=== PATIENT | female | born 1965 | race Two or more races ===

== ENCOUNTER → 2025-04-14 | Outpatient (CLI) | payer OTHER, SELFPAY ==
[2025-04-14 11:41] LABS: Cardiac Risk Estimate 6.7 RATIO (3.7-5.6); Cholesterol 267 mg/dL (132-200); HDL Cholesterol 40 mg/dL (40-60); LDL Cholesterol,Calculated 190 mg/dL (0-130); Triglycerides 185 mg/dL (30-150)
== END | disposition home or self-care (01) ==
LOC: COPL 10:22
PROVIDERS: PCP Nurse Practitioner Family; Referring Provider Nurse Practitioner Family; Visit Provider Nurse Practitioner Family
DX: E78.2 Mixed hyperlipidemia (principal)
CPT/HCPCS: 36415; 80061

== ENCOUNTER 2025-05-29 11:41 | Emergency (ER) | payer OTHER, SELFPAY ==
[2025-05-29 11:42] VITALS: BMI 29.3
--- NOTE | 2025-05-29 11:45 | EKG_ITS ---
[facility] Test Date: 2025-05-29 Pat Name: BROOKE BLAKELY Department: Room: - Gender: Female [employer]oll [employer] Operator: : 1965 Requested By: ED Temporary Provider Order Number: [id number] Reading MD: ED Temporary Provider Measurements Intervals [place] Rate: 91 P: 50 FL: 146 QRS: -15 QRSD: 137 T: 14 QT: 399 QTc: 492 Interpretive Statements SINUS RHYTHM RIGHT BUNDLE BRANCH BLOCK [120+ ms QRS DURATION, UPRIGHT V1, 40+ ms S IN I/aVL/V4/V5/V6] No previous ECG available for comparison /store/S0/[id number].pdf
[2025-05-29 11:58] VITALS: BP 192/107; BP 206/117; PULSE 94; RESP 18; TEMP 37.3; O2SAT 97
--- NOTE | 2025-05-29 12:01 | XR_ITS ---
Examination: PA lateral chest 2 views TECHNIQUE: Upright PA lateral chest 2 views Date and time: May 29, 2025 1221 hours, comparison July 04, 2024 INDICATIONS: Lightheadedness beginning last night. FINDINGS: Normal heart size Lungs are clear. Mild thoracic spondylosis IMPRESSION: No active disease
--- NOTE | 2025-05-29 12:02 | PD.EDRME ---
Rapid Medical Screening Exam RME Arrival date/time: 05/29/25 11:41 59-year-old female with a history of hypertension presents to the emergency room with a chief complaint of 8 out of 10 right-sided sternal chest pain, lightheadedness, dizziness x 2 days I have greeted and performed a focused initial assessment of this patient. A comprehensive ED assessment and evaluation of the patient, analysis of all test results, and completion of the medical decision making process will be conducted by additional ED providers. Chief Complaint: Dizziness Vital signs: Vital Signs Temperature 99.1 F 05/29/25 11:58 Pulse Rate 94 05/29/25 11:58 Respiratory Rate 18 05/29/25 11:58 Blood Pressure 192/107 H 05/29/25 11:58 Pulse Oximetry (%) 97 05/29/25 11:58 Oxygen Delivery Method Room Air 05/29/25 11:58 Vital signs reviewed by provider: Yes
[2025-05-29 12:33] VITALS: BP 192/107; PULSE 94
[2025-05-29 13:06] LABS: Basophils # (Auto) 0.0 Thou/mm3 (0.0-0.2); Basophils % (Auto) 1 % (0-2.5); Eosinophils # (Auto) 0.0 Thou/mm3 (0.0-0.5); Eosinophils % (Auto) 0 % (0-10); Hematocrit 44.3 % (36.0-46.0); Hemoglobin 15.8 g/dL (12.0-16.0); Immature Granulocytes Auto 0.01 Thou/mm3 (0.00-0.00); Lymphocytes # (Auto) 1.2 Thou/mm3 (1.0-4.8); Lymphocytes % (Auto) 21 % (10-50); Mean Corpuscular HGB Conc 35.7 g/dl (31.0-37.0); Mean Corpuscular Hemoglobin 31.6 pg (25.0-35.0); Mean Corpuscular Volume 89 fL (80-100); Monocytes # (Auto) 0.3 Thou/mm3 (0.0-0.8); Monocytes % (Auto) 6 % (0-12); Neutrophils # (Auto) 4.0 Thou/mm3 (1.8-7.7); Neutrophils % (Auto) 73 % (37-80); Nucleated Red Blood Cell # 0.00 Thou/mm3 (0.00-0.00); Nucleated Red Blood Cell % 0 /100 WBC (0); Platelet Count 278 Thou/mm3 (140-440); RDW Standard Deviation 42.9 fL (36.4-46.3); Red Blood Count 5.00 Miln/mm3 (4.00-5.20); White Blood Count 5.6 Thou/mm3 (3.6-11.0)
[2025-05-29 13:22] LABS: INR 1.1 (0.9-1.3); Partial Thromboplastin Time 25.6 Seconds (22.0-36.0); Prothrombin Time 11.7 Seconds (9.0-12.2)
[2025-05-29 13:25] LABS: B-Type Natriuretic Peptide 32 pg/mL (0-100)
[2025-05-29 13:29] LABS: Alanine Aminotransferase 57 U/L (10-49); Albumin, Serum 4.7 gm/dL (3.4-4.8); Albumin/Globulin Ratio 1.6 (1.2-2.2); Alkaline Phosphatase 89 U/L (46-116); Anion Gap 13 (7-16); Aspartate Amino Transferase 53 U/L (0-34); BUN/Creatinine Ratio 9 Ratio (12-20); Bilirubin,Total 1.0 mg/dL (0.3-1.2); Blood Urea Nitrogen 7 mg/dL (9-23); Calcium 11.3 mg/dL (8.3-10.6); Calcium (Corrected) 11.3 mg/dL (8.5-10.1); Carbon Dioxide 22.5 mMol/L (20.0-31.0); Chloride 97 mMol/L (98-107); Creatinine (Component) 0.8 mg/dL (0.6-1.3); Estimated Creatinine Clearance 81.0 mL/min (>60); Globulin 3.0 gm/dL (2.3-3.5); Glucose 130 mg/dL (74-106); LDH (Lactate Dehydrogenase) 221 U/L (120-246); Magnesium 1.9 mg/dL (1.6-2.6); Osmolality,Calculated 264 (275-295); Potassium 3.9 mMol/L (3.4-5.1); Sodium 132 mMol/L (136-145); Total Protein 7.7 gm/dL (5.7-8.2); Troponin I < 0.020 ng/mL (0.0-0.045); eGFR > 60 See Note
[2025-05-29 15:39] VITALS: BP 131/83; PULSE 91; RESP 18; TEMP 37.1; O2SAT 97
[2025-05-29 15:53] LABS: Collection Type, Urine Clean Catch
[2025-05-29 16:13] LABS: Bacteria,Urine Rare; Bilirubin,Urine Negative (Negative); Blood,Urine Trace (Negative); Clarity,Urine Clear (Clear/Hazy); Color,Urine Colorless (Lt Yel-Yel); Culture Indicated,Urine Not Indicated; Glucose, Urine Negative (Negative); Ketones,Urine Negative (Negative); Leukocyte Esterase,Urine Negative (Negative); Nitrite,Urine Negative (Negative); PH,Urine 7.0 (5.0-7.0); Protein,Urine Negative (Neg - Trace); RBC,Urine 1 /hpf (0-3); Specific Gravity,Urine 1.005 (1.001-1.035); Squamous Epithelial Cell,Urine 1 /hpf (0-5); Urobilinogen,Urine Negative mg/dL (0.0-1.0); WBC,Urine < 1 /hpf (0-5)
[2025-05-29 16:45] LABS: Amphetamine/Methamp Scrn,U Negative (Negative); Barbiturate Screen,Urine Negative (Negative); Benzodiazepines Screen,Urine Negative (Negative); Benzoylecgonine Screen, Ur Negative (Negative); Fentanyl Screen,Urine Negative (Negative); Opiate Screen,Urine Negative (Negative); THC Screen,Urine Negative (Negative)
--- NOTE | 2025-05-29 17:01 | EDNOTE_ITS ---
ED Dizzyness RME/HPI General Chief Complaint: Dizziness Stated Complaint: LIGHTHEADED SINCE LAST NIGHT Arrival date/time: 05/29/25 11:41 RME / HPI RME / HPI Narrative: 05/29/25 11:41 59-year-old female with a history of hypertension presents to the emergency room with a chief complaint of 8 out of 10 right-sided sternal chest pain, lightheadedness, dizziness x 2 days I have greeted and performed a focused initial assessment of this patient. A comprehensive ED assessment and evaluation of the patient, analysis of all test results, and completion of the medical decision making process will be conducted by additional ED providers. DR. ELIZABETH MAIN ED EVALUATION 59 year old female with history of hypertension presents to the ED for multiple complaints. States last night she did not sleep well due to epigastric discomfort that did not improve after taking Tums. This morning after waking she felt light headed that was accompanied by a headache. States she checked her blood pressure and was elevated. Shortly after the right side of her face felt numb, prompting ED visit. Reportedly en route to ED she developed chest tightness, felt it was difficult to take a deep breath in, and began to feel anxious. No other associated symptoms reported. Denies fevers, chills, cough, shortness of breath, room-spinning dizziness, vomiting, diarrhea, urinary symptoms. Related Data Home Medications ?Medication ?Instructions ?Recorded ?Confirmed fexofenadine 60 mg tablet (Mirella PO PRN PRN ALLERGY ##0 10/18/13 Allergy) lisinopril 5 mg tablet PO QDAY High Blood Pressure ##0 10/18/13 Previous Rx's ?Medication ?Instructions ?Recorded ferrous sulfate 325 mg (65 mg 325 mg PO BID ##60 10/20 iron) tablet Allergies Allergy/AdvReac Type Severity Reaction Status Date / Time No Known Allergies Allergy Verified 05/29/25 11:44 Review of Systems Review of Systems Systems Reviewed: All systems reviewed, normal except as documented Past Medical History Past Medical History NEUROLOGIC: Negative Neurological Disorders CARDIAC: Positive Hypertension; Negative Cardiac Disorders GASTROINTESTINAL: Negative Gastrointestinal Disorders GENITOURINARY: Negative Genitourinary Disorders MUSCULOSKELETAL: Negative Musculoskeletal Disorders ENDOCRINE: Negative Endocrine Disorders Surgical History SURGICAL: Positive Hysterectomy (2013) and Section (); Negative Abdominal Surgery Social History SMOKING STATUS: Never smoker ED Exam Narrative Physical exam: GENERAL APPEARANCE: alert and oriented x 4, well-developed, well-nourished, no acute distress HEENT: Normocephalic, atraumatic; pupils equal, round, reactive to light; EOMI; mucous membranes pink, moist; oropharynx clear NECK: Supple LUNGS: CTABL; no wheezes, no rales, no rhonchi HEART: Regular rate, regular rhythm; normal S1, S2; no murmurs ABDOMEN: non distended; normal BS; soft, no tenderness, no guarding, no rebound; no masses, no organomegaly, no hernia BACK: no CVA tenderness EXTREMITIES: atraumatic; no edema NEUROLOGIC: awake; alert and oriented x4; cranial nerves II-XII grossly intact; no focal sensory or motor deficits PSYCHIATRIC: appropriate mood and affect SKIN: warm, dry, normal color; no rashes Course Quality Measures none Orders Category Date Time Status EKG (ED ONLY) *Do not use* NOW Care 05/29/25 11:45 Completed EKG (ED ONLY) *Do not use* NOW Care 05/29/25 17:57 Active EKG (ED Only) Stat Exams 05/29/25 11:45 Draft EKG (ED Only) Stat Exams 05/29/25 17:57 Ordered XR chest 2V Stat Exams 05/29/25 12:01 Completed B-Type Natriuretic Peptide Stat Lab 05/29/25 12:54 Completed CBC Stat Lab 05/29/25 12:54 Completed Comprehensive Metabolic Panel Stat Lab 05/29/25 12:54 Completed Drug Screen,Urine Stat Lab 05/29/25 15:50 Completed Free T4 (Free Thyroxine) Stat Lab 05/29/25 17:18 Received LDH (Lactate Dehydrogenase) Stat Lab 05/29/25 12:54 Completed Magnesium Stat Lab 05/29/25 12:54 Completed PTH [Parathyroid Hormone Intact] Stat Lab 05/29/25 17:18 Received Partial Thromboplastin Time Stat Lab 05/29/25 12:54 Completed Prothrombin Time with INR Stat Lab 05/29/25 12:54 Completed TSH [Thyroid Stimulating Hormone] Stat Lab 05/29/25 17:18 Received Troponin I Stat Lab 05/29/25 12:54 Completed Troponin I Stat Lab 05/29/25 17:18 Received Urinalysis, C/S if Indicated Stat Lab 05/29/25 15:50 Completed cloNIDine HCL [Catapres] Med 05/29/25 12:01 Discontinued 0.1 mg PO X1 ONE clonazePAM [KlonoPIN] Med 05/29/25 17:46 Discontinued 0.5 mg PO X1 ONE Vital Signs Vital signs: Vital Signs Temperature 99.1 F 05/29/25 11:58 Pulse Rate 94 05/29/25 11:58 Respiratory Rate 18 05/29/25 11:58 Blood Pressure 192/107 H 05/29/25 11:58 Pulse Oximetry (%) 97 05/29/25 11:58 Oxygen Delivery Method Room Air 05/29/25 11:58 Pulse ox is 97% on room air which is adequate. Dizziness MDM Narrative MDM Narrative:: Palmira Ventura am scribing for and in the presence of Dr. Elizabeth. Patient data External records reviewed:: [facility] previous records (I reviewed ED visit on 06/19/2024 for SVT ) Clinical information provided by:: patient Social determinants that could affect healthcare access:: none Patient has the following chronic illnesses:: HTN How is presenting disease/condition affected by chronic disease/condition?: exacerbated by Evaluation data The following diagnostics were reviewed and interpreted by me:: lab results, ra diology exam(s) and EKG tracing(s) (EKG @ 11:54 AM, sinus rhythm, rate 91, right bundle branch block that is new from EKG on 06/19/2024. ) Lab and/or radiology exams considered but not ordered:: None Interpretation Summary: Ordering Physician: Michael Jefferson Date of Service: 05/29/25 Procedure(s): XR chest 2V Accession Number(s): [id number] cc: Michael Jefferson; Jono Larson MD~ Examination: PA lateral chest 2 views TECHNIQUE: Upright PA lateral chest 2 views Date and time: May 29, 2025 1221 hours, comparison July 04, 2024 INDICATIONS: Lightheadedness beginning last night. FINDINGS: Normal heart size Lungs are clear. Mild thoracic spondylosis IMPRESSION: No active disease Dictated By: Jono Larson MD Signed By: <Electronically signed by Jono Larson MD in OV> 05/29/25 1234 Medications / Prescriptions Medications or Prescriptions considered but not ordered:: None Medication administrations:: Medication Administration History Discontinued Medications Clonazepam (Clonazepam 0.5 Mg Tablet) 0.5 mg PO X1 ONE Stop: 05/29/25 17:47 Clonidine (Clonidine Hcl 0.1 Mg Tablet) 0.1 mg PO X1 ONE Stop: 05/29/25 12:02 Last Admin: 05/29/25 12:33 Dose: 0.1 mg Documented By: See above Consultations Consultation(s) initiated? (list below): Yes Consultation #1 (Physician, Specialty, Details): I spoke with patients dice dealer Dr. Bonilla. Discussed HPI, ED course, exam findings, labs, and EKG results. States he will come evaluate the patient in the ED. Time: 17:08 Diagnosis Dizziness Differential Diagnosis: benign paroxysmal positional vertigo and other (hypertension, anxiety, chest pain ) Most likely diagnosis given after review of the tests above:: Hypertensive urgency New onset RBBB Hypercalcemia Admission Indicated Admission indicated?: not indicated Admission Request Was there a request for admission?: No Disposition Plan Disposition Plan: Discharge Discharge Attestation Discharge Attestation: The patient and all family members were given an opportunity to ask questions and understood the discharge instructions. Discharge instructions specifically effects, indications for sooner follow up or return to the emergency department, and the expected course of current diagnosis. Patient condition: Stable Discharge Plan Prescriptions/Referrals Prescriptions/Med Rec: No Action fexofenadine [Mirella Allergy] 60 MG tablet PO PRN PRN (Reason: ALLERGY) Qty: 0 lisinopril 5 MG tablet PO QDAY Qty: 0 ferrous sulfate 325 ( 65 )MG tablet 325 mg PO BID Qty: 60 1RF Referrals: NOLBERTO PIEDRA [Primary Care Provider] - In 1 week Problem List Clinical Impression: Hypertensive urgency, New onset right bundle branch block (RBBB), Hypercalcemia Patient/Caregiver Discharge Instructions Education Materials: Hypercalcemia Dc, Right Bundle Branch Block, ED High Blood Pressure ... Print Language: Brazilian
[2025-05-29 18:08] LABS: Free T4 (Free Thyroxine) 1.53 ng/dL (0.89-1.76); Thyroid Stimulating Hormone 1.91 uIU/mL (0.55-4.78); Troponin I < 0.020 ng/mL (0.0-0.045)
--- NOTE | 2025-05-29 18:21 | ESCONSULT_ITS ---
HPI Data of Consult Primary Care Provider: NOLBERTO PIEDRA Consult Narrative Reason for consult: Chest pressure History of present illness: HPI:A 59-year-old female patient with past medical history of hypertension, 1 episode of SVT in 2023, came to the ED due to chest pressure that started an hour before presentation. Patient reported that since last night she started to feel that she has postnasal drip that caused her to have upset stomach and she was nauseated. Over the night she started to develop right-sided headache, and she felt very anxious. She reported that she tried to sleep and to not think about her symptoms. She said that she slept however she was not refreshed and when she woke up she felt lightheaded and started to have bilateral numbness and she was somehow hyperventilating . She thought that she was having a stroke. After that she started to feel chest tightness that is when she decided to call her family and to go to the hospital. As soon as she arrived to the hospital her symptoms started to disappear slowly. Of note she had an episode of SVT in 2023 after she was working in the yard under high temperature and she took multiple energy drink that made her have severe palpitation and was diagnosed as having SVT. After that episode she went to follow-up with Dr. Combs, in which Holter monitor, echocardiogram, and nuclear stress test were performed and all of them they were within normal limits. Patient denied any fever, cough, palpitation, lower limb swelling, orthopnea or paroxysmal nocturnal dyspnea. Patient denied any vomiting, diarrhea, skin rash or. Urine tract symptoms. At the ED patient was found to have blood pressure of 192/107, pulse rate of 94, respiratory rate of 18, temperature of 99.1, O2 saturation of 97 on room air EKG was done and showed normal sinus rhythm with right bundle branch block, on review of previous EKG patient did not have a previous RBBB. Her CBC was within normal limits, CMP was significant for calcium level of 11.3, AST and ALT 53 and 57 respectively, BNP was normal, troponin was negative x 2, TSH was 1.91, free T41.53. Urinalysis was normal, and UTOX was negative. chest x-ray was negative for any active disease or fracture. At the ED patient was given clonazepam 0.5 mg p.o. x 1 and was given clonidine 0.1 mg p.o. x 1. Her blood pressure now 134/89 Home medications:Lisinopril PMH: As above PFX: Extensive cardiac history and her mother and her aunts Social hx: Alcohol: Socially Tobacco: Denied denied Illicit drugs: Allergies: No known allergies cc:: cc: Review of Systems Review of Systems Systems Reviewed: All systems reviewed, normal except as documented Exam Vital Signs Temp Pulse Resp BP Pulse Ox O2 Del Method 98.8 F 91 18 131/83 H 97 Room Air 05/29/25 15:39 05/29/25 15:39 05/29/25 15:39 05/29/25 15:39 05/29/25 15:39 05/29/25 15:39 Narrative Exam GEN: AOx3, able to speak full sentences HEENT: NC/AC, PERRLA, oral mucosa moist, neck supple CVS: RRR, S1-S2 present, no murmurs appreciated RESP: CTAB GI: soft,non distended, non tender, NBS MSK: able to move all 4 limbs, no lower extremity edema SKIN: warm and dry MEDICAL CLAIMS MANAGER: CN II-XII and Sensation grossly intact. Results Labs 05/29/25 12:54 05/29/25 12:54 Labs: Short CBC 05/29/25 Range/Units 12:54 WBC 5.6 (3.6-11.0) Thou/mm3 Hgb 15.8 (12.0-16.0) g/dL Hct 44.3 (36.0-46.0) % Plt Count 278 (140-440) Thou/mm3 BMP 05/29/25 12:54 Sodium 132 L Potassium 3.9 Chloride 97 L Carbon Dioxide 22.5 BUN 7 L Creatinine 0.8 Glucose 130 H Calcium 11.3 H Cardiac Enzymes 05/29/25 05/29/25 Range/Units 12:54 17:18 Troponin I < 0.020 < 0.020 (0.0-0.045) ng/mL Liver Function 05/29/25 Range/Units 12:54 Total Bilirubin 1.0 (0.3-1.2) mg/dL AST 53 H (0-34) U/L ALT 57 H (10-49) U/L Alkaline Phosphatase 89 (46-116) U/L Albumin 4.7 (3.4-4.8) gm/dL Urine 05/29/25 Range/Units 15:50 Urine Color Colorless A (Lt Yel-Yel) Urine Clarity Clear (Clear/Hazy) Urine pH 7.0 (5.0-7.0) Ur Specific [place] 1.005 (1.001-1.035) Urine Protein Negative (Neg - Trace) Urine Glucose (UA) Negative (Negative) Quality Measures Quality Measures none Medications Home Medications and Allergies Home Medications ?Medication ?Instructions ?Recorded ?Confirmed ?Type fexofenadine 60 mg tablet (Mirella PO PRN PRN ALLERGY ##0 10/18/13 History Allergy) lisinopril 5 mg tablet PO QDAY High Blood Pressure ##0 10/18/13 History Allergies Allergy/AdvReac Type Severity Reaction Status Date / Time No Known Allergies Allergy Verified 05/29/25 11:44 Visit Medications Discontinued Medications Clonazepam (Clonazepam 0.5 Mg Tablet) 0.5 mg PO X1 ONE Stop: 05/29/25 17:47 Clonidine (Clonidine Hcl 0.1 Mg Tablet) 0.1 mg PO X1 ONE Stop: 05/29/25 12:02 Last Admin: 05/29/25 12:33 Dose: 0.1 mg Assessment & Plan Plan Summary:A 59-year-old female patient with past medical history of hypertension, 1 episode of SVT in 2023, came to the ED due to chest pressure that started an hour before presentation. Cardiology team was consulted after the patient was noticed to have new onset chest pressure with a EKG showing new onset RBBB. Assessment and plan #ACS rule out #Hypertension urgency #? Panic attack #History of SVT Patient presented with sensation of chest pressurefor 1 hour, anxiety. She has a history of SVT in 2023 in which she underwent extensive cardiac workup including echocardiogram, Holter monitor, nuclear stress test which were negative. Previous EKGs was normal sinus rhythm, however today's EKG showed right bundle branch block. Troponin were negative x 2, BNP was negative, and her symptoms subsided. Patient denied any smoking or drug abuse, however, family history of cardiac disease among family members. Patient reported that she has been working long hours recently, and has been under a lot of stress recently. Repeat EKG was normal, with no RBBB He plan ? Metoprolol 12.5mg PO BID daily ? Can be DC'd and F/U o/p with the health insurance sales agent within one week from discharge, PCP within one week from discharge. - Patient's plan and care discussed with my attending, Dr. Chad Chanel MD Internal Medicine PGY-3 Attending Provider Attestation/Addendum I have personally seen and examined the patient separately on the above date of service and discussed the plan of care with the resident. I reviewed the resident Dr. Chanel consultation progress note and agree with the resident findings and plan in the note above and have also edited the documentation to reflect my findings and plan. Patient well-known to me from previous admission when she had the SVT and also followed up with me in the clinic for couple of times. Patient was recommended to metoprolol XL but could not tolerated well previously and then blood pressure medication was changed to lisinopril 5 mg once daily for a primary care provider. Patient was doing well until today when she started experiencing the symptoms has extreme above. EKG in emergency showed normal sinus rhythm but with new right bundle branch block. She did complain of some chest pain pressure and palpitations and appeared like more of an anxiety and panic attack and patient decided to come to the emergency department. Patient heart rate was also above 100 but there is no EKG at that point of time. Patient mostly has rate related right bundle branch block. CBC was within normal limits, CMP was significant for calcium level of 11.3, AST and ALT 53 and 57 respectively, BNP was normal, troponin was negative x 2, TSH was 1.91, free T41.53. Urinalysis was normal, and UTOX was negative. chest x- ray was negative for any active disease or fracture. At the ED patient was given clonazepam 0.5 mg p.o. x 1 and was given clonidine 0.1 mg p.o. x 1. Her blood pressure now 134/89 Based on the labs and her history. Patient had some foot over the weekend and probably had some food poisoning after which patient has been not feeling well and did not eat and drink well for the last couple of days. Based on the labs the elevated calcium 11.2. Patient is mildly dehydrated and with the poor oral intake which had precipitated her episode of tachycardia. Unclear if she had SVT as there was no telemetry monitoring at that point of time but by the time she was in the ED she was in sinus tachycardia and now in sinus rhythm but heart rate between 90-110 bpm. Troponins 2 sets were negative. Patient recommended to start metoprolol tartrate 12.5 mg twice daily for now and decrease the lisinopril to half a 2.5 mg once daily. Patient was slightly anxious and was counseled about the SVT again and not to keep her cell dehydrated and have adequate hydration, continue to exercise regularly and take metoprolol as prescribed. Patient recommended to follow-up with the clinic in 1 week and okay to be discharged from cardiac perspective. Ulices Bonilla M.D. Interventional Cardiology
[2025-05-29 18:37] VITALS: BP 158/86; PULSE 77; RESP 20; O2SAT 99
[2025-05-29 18:52] LABS: Parathyroid Hormone Intact 20.5 pg/ml (18.5-88.0)
--- NOTE | 2025-05-29 19:14 | PC.NURSE ---
DR. KELLY AT BEDSIDE SPEAKING WITH PATIENT.
[2025-05-29 20:04] VITALS: BP 157/92; PULSE 82; RESP 16; TEMP 36.7; O2SAT 96
== END 2025-05-29 20:05 | disposition home or self-care (01) ==
PROVIDERS: Nurse Practitioner Family; Emergency Provider Emergency Medicine; PCP Nurse Practitioner Family
DX: I16.0 Hypertensive urgency (principal); I10 Essential (primary) hypertension; I45.10 Unspecified right bundle-branch block; E83.52 Hypercalcemia
CPT/HCPCS: 36415; 71046; 80053; 80307; 81001; 83615; 83735; 83880; 83970; 84439; 84443; 84484; 85025; 85610; 85730; 93005; 99284; A9270

== ENCOUNTER → 2025-06-14 | Outpatient (CLI) | payer OTHER, SELFPAY ==
--- NOTE | 2025-06-14 15:11 | XR_ITS ---
EXAMINATION: Cervical spine, 5 views Technique: Cervical spine AP, AP odontoid, lateral, bilateral obliques, 5 views Exam date and time: June 14, 2025, 1518 hours, comparison December 17, 2022 INDICATIONS: Neck pain 3 years FINDINGS: Adequate alignment cervical field bodies. No cervical fracture. Mild disc narrowing C6-C7 Moderate cervical spondylosis Mild bilateral neural foraminal stenosis C3-C4 Intact odontoid Soft tissue left carotid vascular calcification IMPRESSION: Prominent cervical spondylosis No cervical fracture Early degenerative disc disease C6-C7
== END | disposition home or self-care (01) ==
PROVIDERS: PCP Nurse Practitioner Family; Referring Provider Chiropractor; Visit Provider Chiropractor
DX: M47.812 Spondylosis without myelopathy or radiculopathy, cervical region (principal); M50.323 Other cervical disc degeneration at C6-C7 level
CPT/HCPCS: 72050

== ENCOUNTER → 2025-06-22 | Outpatient (CLI) | payer OTHER, SELFPAY ==
--- NOTE | 2025-06-22 13:15 | XR_ITS ---
Examination: Screening digital mammography, bilateral Computer aided detection 3-D breast Tomosynthesis, bilateral Date and time of exam: June 22, 2025, 1320 hours, compared to mammograms dating to June 17, 2010 Indication: Screening Technique: Nonmagnified MLO, CC views of the breasts to been obtained, reconstructed from 3-D Tomosynthesis images. R2 computer aided detection program utilized for evaluation of suspicious masses and/or abnormal calcifications. 3-D Tomosynthesis images obtained. Findings: The breasts are heterogeneously dense, which may obscure small masses 14 mm nodule indistinct margins upper outer right breast posterior depth 9 mm nodule indistinct margins upper outer left breast Impression: BI-RADS Category 0: Incomplete: Need additional imaging evaluation Recommend follow-up spot tomographic views of 14 mm nodule upper outer right breast and 9 mm nodule upper outer left breast as well as bilateral breast sonography to complete the work-up
== END | disposition home or self-care (01) ==
LOC: CDIM 13:13
PROVIDERS: Referring Provider Nurse Practitioner Family; Visit Provider Nurse Practitioner Family
DX: Z12.31 Encounter for screening mammogram for malignant neoplasm of breast (principal); N63.21 Unspecified lump in the left breast, upper outer quadrant; N63.11 Unspecified lump in the right breast, upper outer quadrant; R92.8 Other abnormal and inconclusive findings on diagnostic imaging of breast
CPT/HCPCS: 77063; 77067

== ENCOUNTER → 2025-08-28 | Outpatient (CLI) | payer OTHER, SELFPAY ==
--- NOTE | 2025-08-28 09:00 | XR_ITS ---
Examination: Breast ultrasound complete, bilateral Date and time of exam: August 28, 2025, 0946 hours INDICATIONS: Mammogram June 22, 2000 2514 mm nodule indistinct margins upper outer right breast posterior depth, 9 mm nodule indistinct margins upper outer left breast Technique: Real-time grayscale ultrasonographic imaging bilateral breasts, including all 4 quadrants as well as nipple retroareolar and axillary regions. Findings: Sonographic images right breast No cystic or solid mass Sonographic images left breast 12:00 nodule circumscribed 6 x 6 mm IMPRESSION: BI-RADS Category 3: Probably benign findings Recommend 1 additional 6-month left breast sonogram follow-up to document stability of 12:00 nodule left breast
--- NOTE | 2025-08-28 10:00 | XR_ITS ---
Examination: Diagnostic digital mammography, bilateral Computer aided detection 3-D breast Tomosynthesis, bilateral Date and time of exam: August 28, 2025, 10 0 9:00 a.m. INDICATIONS: Mammogram June 22, 2025 14 mm nodule upper outer right breast 9 mm nodule upper outer left breast Technique: Nonmagnified MLO, CC views of the breasts to been obtained, reconstructed from 3-D Tomosynthesis images. R2 computer aided detection program utilized for evaluation of suspicious masses and/or abnormal calcifications. 3-D Tomosynthesis images obtained. Findings: The breasts are heterogeneously dense, which may obscure small masses Circumscribed nodule 10 mm upper outer right breast posterior depth which may represent an intramammary lymph node Spot compression left breast films demonstrate no suspicious mass Impression: BI-RADS Category 3: Probably benign findings Recommend 1 additional 6-month right mammogram follow-up as above.
== END | disposition home or self-care (01) ==
PROVIDERS: PCP Nurse Practitioner Family; Referring Provider Nurse Practitioner Family; Visit Provider Nurse Practitioner Family
DX: R92.333 Mammographic heterogeneous density, bilateral breasts (principal); N63.25 Unspecified lump in the left breast, overlapping quadrants
CPT/HCPCS: 76641; 77062; 77066; G0279